=== PATIENT | female | born 1930 | race Caucasian/White ===

== ENCOUNTER 2017-03-11 10:03 | Emergency (ER) | payer OTHER ==
[~2017-03-11] VITALS: Ht 154.9 cm; Wt 70.3 kg
--- NOTE | ~2017-03-11 | EKG ---
[place] [address] [facility] [facility] [place] [address] ELECTROCARDIOGRAM REPORT Name: DOM STEELE Room [facility]: [facility]#: [id number] Admission: 03/11/17 Attend Phys: Discharge: 03/11/17 Date of : 34 Report #: [id number] THIS REPORT FOR: //name// [facility] ED Test Date: 2017-03-11 Test Time: 10:06:56 Pat Name: DOM STEELE Department: Room: Gender: F Director Clinical Information Services: LESLY : 1930 Requested By: Johny Farah Order Number: [id number] MD: Bandar Pina Measurements Intervals [place] Rate: 63 P: 19 NM: 179 QRS: -39 QRSD: 141 T: 14 QT: 474 QTc: 486 Interpretive Statements Sinus rhythm Right bundle branch block Left ventricular hypertrophy Compared to ECG 07/30/2015 15:14:07 Left ventricular hypertrophy now present Supraventricular premature complex(es) no longer present Electronically Signed On 03-12-2017 8:51:24 CDT by Bandar Pina [email or web address] <ELECTRONICALLY SIGNED> By: Bandar Pina MD, [facility] 03/12/17 [id number] Badnar Pina MD, [facility] /EPI
[~2017-03-11 10:03] MED LIST: ACYCLOVIR 400400 MG PO; ARTHROTEC 75 T1 EAC1 PO; ATIVAN PO; ATIVAN1 MG PO; BACTRIM DS TAB1 EACH PO; BACTROBAN22 GM TP; BENADRYL25 MG PO; BENEFIBER98 GM PO; BUTRANS1 EAC1 TD; CALCIUM 500 +1 EAC5 PO; CALCIUM PO; CARDIZEM CD180 MG PO; CARDIZEM CD240 MG PO; CARDIZEM30 MG PO; CELEBREX 200 M200 M1 PO; CELEXA10 MG PO; CIPRO250 M1 PO; CIPROFLOXACIN500 M1 PO; CIPROFLOXACIN500 M3 PO; CITRACAL + D C1 EACH; CLARITIN10 MG PO; CLONIDINE0.1; COLACE 100 MG100 MG PO; COLACE100 MG PO; COMPAZINE5 M1 PO; COMPOUND CREAM TOP; CYMBALTA20 MG PO; CYMBALTA30 MG PO; CYMBALTA60 MG PO; DESYREL100 MG PO; DETROL LA2 MG PO; DEXTROAMPHETAMIN5 M2 PO; DICLOFENAC CREAM; DOXYCYCLINE MO100 MG PO; FENTANYL PA12 MCG/HR TP; FENTANYL PA25 MCG/HR TOP; FENTANYL PA25 MCG/HR TP; FLEXERIL PO; FLOMAX PO; GABAPENTIN; GAS-X180 MG PO; GLYCOLAX POWDER17 G1 PO; HYDROCHLOROTHIA25 M1 PO; HYDROCHLOROTHIA25 M2 PO; HYDROCODON-ACE1 EAC5 PO; HYDROCODONE-AP1 EACH PO; HYDROXYCHLOROQ200 M1 PO; KEFLEX250 MG PO; KETOPROFEN; LASIX 20 MG TAB20 MG PO; LEXAPRO 10 MG T10 MG PO; LIDODERM 5%1 PATCH; LISINOPRIL5 MG PO; LOPERAMIDE 2 MG2 M1 PO; LOSARTAN POTASS25 MG PO; MEDROL DOSPAK21 TA1 PO; MEDROLDOSEPACK PO; MELATONIN10 M2 PO; METHADONE HCL5 MG PO; METHYLPHENIDATE20 M1 PO; METHYLPHENIDATE20 M2 PO; METHYLPHENIDATE30 MG PO; METHYLPHENIDATE5 MG PO; MIRALAX255 GM; MS CONTIN15 MG PO; MULTIVITAMINS PO; MYBETRIQ; MYRBETRIQ25 MG PO; MYRBETRIQ50 MG PO; NEPHROCAPS SOFT1 CAP; NORCO 10-325 T1 EACH PO; NUCYNTA ER50 MG PO; NUCYNTA50 MG PO; ONDANSETRON HCL8 MG PO; OXYCODONE-ACET1 EAC2 PO; OXYCODONE-APAP1 EAC6 PO; PANTOPRAZOLE SO40 M1 PO; PERCOCET 10-321 EACH; PERCOCET 10-321 EACH PO; PERCOCET 5-3251 EACH PO; PERCOCET 7.5-31 EACH PO; PREDNISONE 20 M20 MG PO; PRILOSEC 20 MG20 MG PO; PROBIOTIC1 EACH PO; PROTONIX 20 MG20 M1 PO; PROTONIX40 M1 PO; PROTONIX40 M2 PO; PROVIGIL 200 M200 M1 PO; RITALIN LA10 MG PO; RITALIN LA20 MG PO; RITALIN LA30 MG PO; RITALIN10 MG PO; RITALIN20 MG PO; RITALIN5 MG; RITALIN5 MG PO; SAVELLA100 MG PO; SAVELLA50 MG PO; SENNA; STOOL SOFTENER1 EAC2 PO; STOOL SOFTENER50 MG PO; TESSALON PERLE100 MG; TESSALON PERLE100 MG PO; TRAMADOL HCL50 MG PO; TRAZODONE 150150 M1 PO; TRAZODONE HCL100 MG PO; ULTRAM ER300 MG PO; VAGIFEM25 MCG VAG; VAGIFEM25 MCG VG; VESICARE10 M1 PO; VIMOVO 500-201 EACH PO; VITAMIN D-32000 UNIT PO; VITAMIN D1000 UNI1 PO; VITAMIN E400 UNIT PO; VOLTAREN GEL 1100 G1; VOLTAREN GEL 1100 G1 TOP; VOLTAREN GEL 1100 GM TOP; WELLBUTRIN SR150 MG PO; ZOFRAN4 MG PO; ZOFRAN8 MG PO; ZOLOFT 50 MG TA50 M1 PO
[2017-03-11] MEDS ORDERED: CELEBREX 200 M200 M1 PO (10:19)
[2017-03-11] MEDS ORDERED: DILT-XR180 MG PO (10:23)
[2017-03-11] MEDS ORDERED: PERCOCET 5-3251 EACH PO (12:26)
== END 2017-03-11 12:54 | disposition home or self-care (01) ==
LOC: ER 10:03
DX: G89.29 Other chronic pain (principal); M54.5 Low back pain; I10 Essential (primary) hypertension; F32.9 Major depressive disorder, single episode, unspecified; F41.9 Anxiety disorder, unspecified; K21.9 Gastro-esophageal reflux disease without esophagitis; M19.90 Unspecified osteoarthritis, unspecified site; R53.82 Chronic fatigue, unspecified; Z86.73 Personal history of transient ischemic attack (TIA), and cerebral infarction without residual deficits; Z85.6 Personal history of leukemia; Z88.6 Allergy status to analgesic agent; Z88.5 Allergy status to narcotic agent; Z88.8 Allergy status to other drugs, medicaments and biological substances; Z87.891 Personal history of nicotine dependence

== ENCOUNTER → 2017-03-30 | Outpatient (CLI) | payer OTHER ==
[~2017-03-30] MED LIST changes: +DILT-XR180 MG PO
== END ==
LOC: PUL 10:22
DX: Z01.812 Encounter for preprocedural laboratory examination (principal)